=== PATIENT | male | born 1955 | race Caucasian/White ===

== ENCOUNTER 2018-07-02 15:37 | Emergency (ER) | payer MEDICARE, OTHER ==
[2018-07-02 15:59] VITALS: BP 104/64; PULSE 70; RESP 20; TEMP 98; O2SAT 97
--- NOTE | 2018-07-02 16:37 | C.PDOC ---
History Of Present Illness Patient is a 59 y/o M brought in by EMS after he was found lying in front of a house, next to some beer. On arrival, patient is refusing to provide additional history. Reports nothing happened. Reports I want to go home. Time Seen by Provider: 07/02/18 16:23 Chief Complaint (Nursing): Substance Abuse History Per: Patient History/Exam Limitations: intoxication Onset/Duration Of Symptoms: Hrs Current Symptoms Are (Timing): Still Present Suicide/Self Injury Attempted (Context): None Involuntary Hold By: None Additional History Per: EMS Past Medical History Reviewed: Historical Data, Nursing Documentation, Vital Signs Vital Signs: Last Vital Signs Temp 98.0 F 07/02/18 15:55 Pulse 70 07/02/18 15:55 Resp 20 07/02/18 15:55 BP 104/64 07/02/18 15:55 Pulse Ox 97 07/02/18 16:38 - Medical History PMH: HTN, Seizures Family History: States: Unknown Family Hx - Social History Hx Tobacco Use: No Hx Alcohol Use: No (hx of alcohol abuse) Hx Substance Use: No - Immunization History Hx Tetanus Toxoid Vaccination: Yes Hx Influenza Vaccination: Yes Hx Pneumococcal Vaccination: No Review Of Systems Constitutional: Negative for: Fever Cardiovascular: Negative for: Chest Pain Respiratory: Negative for: Shortness of Breath Gastrointestinal: Negative for: Vomiting, Abdominal Pain Neurological: Negative for: Weakness, Headache Psych: Negative for: Other (alcohol abuse) Physical Exam - Physical Exam Appears: Non-toxic, No Acute Distress Skin: Warm, Dry, No Rash, No Ecchymosis Head: Atraumatic, Normacephalic Eye(s): bilateral: Normal Inspection, PERRL, EOMI Nose: Normal Oral Mucosa: Moist Neck: Normal ROM, Supple Chest: Symmetrical Cardiovascular: Rhythm Regular, No Murmur Respiratory: Normal Breath Sounds, No Accessory Muscle Use Gastrointestinal/Abdominal: Soft, No Tenderness, No Distention Extremity: Bilateral: Atraumatic, Normal Color And Temperature Neurological/Psych: Normal Speech, Other (Alert, awake, responsive to verbal stimuli) Gait: Steady (with a cane) ED Course And Treatment O2 Sat by Pulse Oximetry: 97 (RA) Pulse Ox Interpretation: Normal Medical Decision Making Medical Decision Making: FS:117. Ordered CT head and CT c-spine due to being found on ground near alcohol. Patient states he wants to leave. Counseled patient regarding the importance of obtaining CT Head/C-spine to evaluate for injury. [id number] Nurse reports that patient eloped before imaging Disposition - Disposition Disposition: ELOPEMENT - ER ONLY Disposition Time: 16:36 Condition: UNKNOWN Forms: [facility] (Ukrainian) - Clinical Impression Clinical Impression: Alcohol abuse - Scribe Statement The provider has reviewed the documentation as recorded by the Scribe (Earline Beth) Provider Attestation: All medical record entries made by the Scribe were at my direction and personally dictated by me. I have reviewed the chart and agree that the record accurately reflects my personal performance of the history, physical exam, medical decision making, and the department course for this patient. I have also personally directed, reviewed, and agree with the discharge instructions and disposition.
== END 2018-07-02 16:29 | disposition left against medical advice (07) ==
LOC: C.ER 15:37
DX: F10.10 Alcohol abuse, uncomplicated (principal); Y90.9 Presence of alcohol in blood, level not specified